=== PATIENT | male | born 1995 | race Caucasian/White ===

== ENCOUNTER 2018-02-21 19:31 | Emergency (ER) | payer BC ==
[~2018-02-21] VITALS: Ht 185.4 cm; Wt 113.4 kg
[~2018-02-21 19:31] MED LIST: GABA-534 PO; SERT50TA PO
--- NOTE | 2018-02-21 21:20 | NUR ---
Patient walked into ER A/Ox3 with steady gait. Patient states he was at [facility] rehab as an inpatient when he vomited in restroom and had syncopal episode earlier today. Here to be medically cleared to be readmitted to Rehab. Patient with no distress noted. No complaint noted
--- NOTE | 2018-02-21 22:06 | NUR ---
Patient discharged to home in stable conditon. Written and verbal after care instructions given. Patient verbalizes understanding of instructions. Walked out of ER with no distress noted
[2018-02-21 22:08] VITALS: BP 122/75
== END 2018-02-21 22:09 | disposition home or self-care (01) ==
LOC: ER 19:33
DX: R11.2 Nausea with vomiting, unspecified (principal); R55 Syncope and collapse; F17.290 Nicotine dependence, other tobacco product, uncomplicated; F11.10 Opioid abuse, uncomplicated
CPT/HCPCS: 93005; A4663